=== PATIENT | female | born 1960 | race African-American/Black ===

== ENCOUNTER → 2017-06-29 | Outpatient (CLI) | payer BC ==
[~2017-06-29] MED LIST: HYGROTON 2525 MG/TAB
== END ==
LOC: MC.RAD 07:20
DX: Z12.31 Encounter for screening mammogram for malignant neoplasm of breast (principal); N64.89 Other specified disorders of breast

== ENCOUNTER → 2017-07-05 | Outpatient (CLI) | payer BC | LOC: MC.RAD 13:30 | DX: N64.89 Other specified disorders of breast (principal) ==

== ENCOUNTER → 2018-07-08 | Outpatient (CLI) | payer BC | LOC: MC.RAD 07:16 | DX: Z12.31 Encounter for screening mammogram for malignant neoplasm of breast (principal) ==

== ENCOUNTER → 2019-06-06 | Outpatient (CLI) | payer BC | LOC: COL.RAD 11:25 | DX: I27.20 Pulmonary hypertension, unspecified (principal) | CPT/HCPCS: A9540 ==

== ENCOUNTER → 2019-06-20 | Outpatient (CLI) | payer BC ==
[2019-06-21 10:41] LABS: FACTOR V LEIDEN MUTATION B Negative (Negative)
[2019-06-21 10:42] LABS: PT G20210A MUTATION B Negative (Negative)
== END ==
LOC: COL.RAD 12:02
PROVIDERS: Internal Medicine Pulmonary Disease
DX: I27.20 Pulmonary hypertension, unspecified (principal); R07.9 Chest pain, unspecified
CPT/HCPCS: A9540; A9567

== ENCOUNTER → 2019-07-31 | Outpatient (CLI) | payer BC | LOC: MC.RAD 09:38 | DX: Z12.31 Encounter for screening mammogram for malignant neoplasm of breast (principal) ==

== ENCOUNTER → 2020-08-12 | Outpatient (CLI) | payer BC | LOC: MC.RAD 08-09 10:15 | DX: Z12.31 Encounter for screening mammogram for malignant neoplasm of breast (principal) ==

== ENCOUNTER → 2021-09-15 | Outpatient (CLI) | payer BC | LOC: MC.RAD 11:22 | DX: Z12.31 Encounter for screening mammogram for malignant neoplasm of breast (principal) ==

== ENCOUNTER → 2023-11-17 | Outpatient (CLI) | payer BC | LOC: MC.RAD 14:58 | DX: Z12.31 Encounter for screening mammogram for malignant neoplasm of breast (principal) ==